=== PATIENT | female | born 1955 | race Caucasian/White ===

== ENCOUNTER 2023-03-09 22:26 | Inpatient (IN) | payer MEDICARE, OTHER, SELFPAY ==
[2023-03-09 22:54] LABS: #Basophils 0.1 thou/uL (0.0-0.2); #Eosinphils 0.2 thou/uL (0.0-0.7); #Lymphocytes 1.2 thou/uL (1.20-3.40); #Monocytes 0.8 thou/uL (0.11-0.59); #Neutrophils 11.2 thou/uL (1.40-6.50); %Basophils 0.4 % (0.0-1.0); %Eosinophils 1.3 % (0.0-10.0); %Monocytes 5.8 % (0.0-10.0); %Neutrophils 83.5 % (42.0-75.0); Hemoglobin 10.1 g/dL (12.0-16.0); Mean Corpuscular HGB CONC 34.1 g/dL (32.0-36.0); Mean Corpuscular Volume 96.8 fl (78.0-98.0); Mean Platelet Volume 8.2 fL (7.4-10.4); Platelet Count 288 10x3/uL (130-400); RBC Distribution Width 11.8 % (11.5-14.5); Red Blood Cell (RBC) Count 3.06 mill/uL (4.20-5.40); White Blood Cell (WBC) Count 13.4 10x3/uL (4.8-10.8)
[2023-03-09 23:24] LABS: ALT (SGPT) 39 U/L (8-55); AST (SGOT) 44 U/L (5-34); Albumin 3.4 g/dL (3.4-4.8); Alkaline Phosphatase 108 U/L (40-110); Anion Gap 15 mmol/L (10-20); BUN (Urea Nitrogen) 18 mg/dL (9.8-20.1); Bilirubin, Total 0.5 mg/dL (0.2-1.2); Calc. Creatinine Clearance 0 mL/min (70-130); Calcium 8.7 mg/dL (7.8-10.44); Carbon Dioxide 20 mmol/L (23-31); Chloride 102 mmol/L (98-107); Estimated GFR 40; Glucose 241 mg/dL (80-115); Potassium 4.3 mmol/L (3.5-5.1); Protein, Total 6.4 g/dL (5.8-8.1); Sodium 133 mmol/L (136-145)
[2023-03-09] MEDS ORDERED: Cefepime 2 GM VIAL ONE (23:36)
[2023-03-09 23:37] LABS: Bacteria/HPF 4+ HPF (None Seen); Bilirubin Negative (Negative); Blood, Urine Negative (Negative); Clarity Clear (Clear); Glucose, Urine (Dipstick) 300 mg/dL (Negative); Ketone, Urine Trace mg/dL (Negative); Leukocyte Negative Leu/uL (Negative); Nitrite Negative (Negative); Protein, Urine (Dipstick) 70 mg/dL (Neg-Trace); RBC/HPF None Seen HPF (0-3); Specific Gravity, Urine 1.011 (1.002-1.036); Urobilinogen Normal mg/dL (Less than 2); WBC/HPF 0-3 HPF (0-3); pH, Urine 5.5 (5.0-9.0)
[2023-03-09 23:51] LABS: Actual Bicarbonate (HCO3a) 19.1 mEq/L (22-28); Analyzer IN Cardio ER; Base Excess (BEa) -6.2 mEq/L (-2.0 to +3.0); CO2 Tension 36.7 mmHg (35.0-45.0); Calcium, Ionized (arterial) 1.14 mmol/L (1.12-1.30); Carboxyhemoglobin (COHb) 0.3 gm% (0.0-3.0); Potassium - ABG Lab 4.47 mmol/L (3.70-5.30); pH, Arterial 7.33 (7.35-7.45)
[2023-03-09 23:57] LABS: ALV-art Gradient 179.425 mmHg (0-20); Puncture Site RRA
[2023-03-10] MEDS ORDERED: Vancomycin 1 GM/200 ML (FROZEN) BAG ONE (00:21)
[2023-03-10] MEDS ORDERED: Lorazepam 1 MG TAB ONE (00:21)
[2023-03-10] MEDS ORDERED: LORazepam 2 MG/ML SYR.(CARPUJECT) ONE (00:22)
[2023-03-10] MEDS ORDERED: Ondansetron ODT 4 MG TAB SL PRN (02:15)
[2023-03-10 02:40] LABS: Actual Bicarbonate (HCO3a) 18.4 mEq/L (22-28); Base Excess (BEa) -7.4 mEq/L (-2.0 to +3.0); CO2 Tension 38.3 mmHg (35.0-45.0); Calcium, Ionized (arterial) 1.13 mmol/L (1.12-1.30); Carboxyhemoglobin (COHb) 0.3 gm% (0.0-3.0); Hemoglobin (Hb) 9.8 g/dL (12.0-16.0); O2 Tension (PaO2), arterial 82.9 mmHg (> 80.0); Potassium - ABG Lab 4.52 mmol/L (3.70-5.30)
[2023-03-10 02:41] LABS: Puncture Site RRA
[2023-03-10 02:42] LABS: ALV-art Gradient 225.725 mmHg (0-20)
[2023-03-10] MEDS ORDERED: Sodium Bicarb 50 MEQ/50 ML VIAL IVP SCH (03:00)
[2023-03-10] MEDS ORDERED: Dextrose 50% Abboject 50 ML SYRINGE SLOW IVP PRN (03:14)
[2023-03-10] MEDS ORDERED: Dextrose 5% in Water 1,000 ML IV PRN (03:14)
[2023-03-10] MEDS ORDERED: Electrolyte Replacement Protocol 1 EACH FS PRN (03:16)
[2023-03-10] MEDS ORDERED: Benzonatate 100 MG CAP PO PRN (03:21)
[2023-03-10] MEDS ORDERED: Guaifenesin DM 100-10/5 ML UDCUP PO PRN (03:21)
[2023-03-10 04:37] LABS: SARS-CoV-2 NAA Rapid Test Not Detected (NotDetected)
[2023-03-10] MEDS: HumaLOG 300 UNITS/3 ML VIAL SC PRN ×2 (06:13→18:38)
[2023-03-10 06:56] LABS: Legionella Urinary Ag Negative (Negative); Strep pneumo Urine Ag NEGATIVE (NEGATIVE)
[2023-03-10 07:43] LABS: #Monocytes 0.7 thou/uL (0.11-0.59); #Neutrophils 9.2 thou/uL (1.40-6.50); %Basophils 0.4 % (0.0-1.0); %Eosinophils 0.1 % (0.0-10.0); %Lymphocytes 8.7 % (21.0-51.0); %Neutrophils 84.8 % (42.0-75.0); Hemoglobin 9.8 g/dL (12.0-16.0); Mean Corpuscular HGB CONC 34.5 g/dL (32.0-36.0); Mean Corpuscular Hemoglobin 33.4 pg (27.0-31.0); Mean Corpuscular Volume 96.8 fl (78.0-98.0); Mean Platelet Volume 8.1 fL (7.4-10.4); Platelet Count 256 10x3/uL (130-400); Red Blood Cell (RBC) Count 2.94 mill/uL (4.20-5.40); White Blood Cell (WBC) Count 10.8 10x3/uL (4.8-10.8)
[2023-03-10 07:59] LABS: Anion Gap 14 mmol/L (10-20); BUN (Urea Nitrogen) 18 mg/dL (9.8-20.1); Calc. Creatinine Clearance 58 mL/min (70-130); Calcium 8.4 mg/dL (7.8-10.44); Carbon Dioxide 19 mmol/L (23-31); Chloride 105 mmol/L (98-107); Estimated GFR 47; Glucose 255 mg/dL (80-115); Potassium 4.5 mmol/L (3.5-5.1); Sodium 133 mmol/L (136-145)
[2023-03-10] MEDS ORDERED: Pantoprazole 40 MG VIAL IVP SCH (09:00)
[2023-03-10] MEDS: Cefepime 2 GM in Sodium Chloride 0.9% 100 ML IVPB SCH ×2 (11:24→21:07)
[2023-03-10] MEDS: Gabapentin 100 MG CAP PO SCH (11:25)
[2023-03-10] MEDS: Ondansetron PF 4 MG/2 ML Vial IVP PRN ×2 (11:27→16:04)
[2023-03-10] MEDS: Acetaminophen 325 MG TAB PO PRN ×2 (11:27→21:07)
[2023-03-10] MEDS ORDERED: Gabapentin 100 MG CAP PO SCH (21:15)
[2023-03-11 03:58] LABS: #Lymphocytes 1.4 thou/uL (1.20-3.40); #Monocytes 0.6 thou/uL (0.11-0.59); #Neutrophils 5.9 thou/uL (1.40-6.50); %Basophils 0.4 % (0.0-1.0); %Eosinophils 0.3 % (0.0-10.0); %Lymphocytes 17.5 % (21.0-51.0); %Monocytes 7.1 % (0.0-10.0); %Neutrophils 74.7 % (42.0-75.0); Mean Corpuscular HGB CONC 34.6 g/dL (32.0-36.0); Mean Corpuscular Hemoglobin 33.8 pg (27.0-31.0); Mean Corpuscular Volume 97.5 fl (78.0-98.0); Platelet Count 236 10x3/uL (130-400); RBC Distribution Width 11.8 % (11.5-14.5); Red Blood Cell (RBC) Count 2.65 mill/uL (4.20-5.40)
[2023-03-11 04:25] LABS: Anion Gap 15 mmol/L (10-20); BUN (Urea Nitrogen) 21 mg/dL (9.8-20.1); Calc. Creatinine Clearance 53 mL/min (70-130); Calcium 8.6 mg/dL (7.8-10.44); Carbon Dioxide 19 mmol/L (23-31); Chloride 104 mmol/L (98-107); Estimated GFR 43; Glucose 284 mg/dL (80-115); Potassium 4.4 mmol/L (3.5-5.1); Sodium 134 mmol/L (136-145)
[2023-03-11] MEDS: Ondansetron PF 4 MG/2 ML Vial IVP PRN ×3 (04:31→21:42)
[2023-03-11] MEDS: HumaLOG 300 UNITS/3 ML VIAL SC PRN ×3 (06:14→18:49)
[2023-03-11] MEDS: Cefepime 2 GM in Sodium Chloride 0.9% 100 ML IVPB SCH (09:03)
[2023-03-11] MEDS: Gabapentin 100 MG CAP PO SCH (09:03)
[2023-03-11] MEDS: Acetaminophen 325 MG TAB PO PRN (18:52)
[2023-03-12] MEDS: Ondansetron PF 4 MG/2 ML Vial IVP PRN (04:00)
[2023-03-12 04:25] LABS: #Lymphocytes 1.1 thou/uL (1.20-3.40); #Monocytes 0.5 thou/uL (0.11-0.59); #Neutrophils 7.1 thou/uL (1.40-6.50); %Basophils 0.2 % (0.0-1.0); %Eosinophils 0.3 % (0.0-10.0); %Lymphocytes 12.3 % (21.0-51.0); %Monocytes 6.2 % (0.0-10.0); %Neutrophils 81.1 % (42.0-75.0); Hemoglobin 9.8 g/dL (12.0-16.0); Mean Corpuscular HGB CONC 34.8 g/dL (32.0-36.0); Mean Corpuscular Hemoglobin 33.9 pg (27.0-31.0); Mean Corpuscular Volume 97.4 fl (78.0-98.0); Mean Platelet Volume 8.3 fL (7.4-10.4); Platelet Count 281 10x3/uL (130-400); RBC Distribution Width 11.8 % (11.5-14.5); Red Blood Cell (RBC) Count 2.87 mill/uL (4.20-5.40); White Blood Cell (WBC) Count 8.8 10x3/uL (4.8-10.8)
[2023-03-12 04:42] LABS: Anion Gap 17 mmol/L (10-20); BUN (Urea Nitrogen) 21 mg/dL (9.8-20.1); Calc. Creatinine Clearance 54 mL/min (70-130); Calcium 9.2 mg/dL (7.8-10.44); Carbon Dioxide 19 mmol/L (23-31); Chloride 105 mmol/L (98-107); Estimated GFR 42; Glucose 236 mg/dL (80-115); Potassium 4.6 mmol/L (3.5-5.1); Sodium 136 mmol/L (136-145)
[2023-03-12] MEDS: HumaLOG 300 UNITS/3 ML VIAL SC PRN ×4 (06:06→20:30)
[2023-03-12] MEDS: Gabapentin 100 MG CAP PO SCH (09:56)
[2023-03-12] MEDS: Promethazine HCl 25 MG in Sodium Chloride 0.9% 50 ML IVPB PRN ×2 (12:34→20:29)
[2023-03-12 15:36] LABS: O2 Tension (PaO2), arterial 59.9 mmHg (> 80.0)
[2023-03-12] MEDS ORDERED: Furosemide 40 MG/4 ML VIAL SLOW IVP SCH (17:00)
[2023-03-13] MEDS: Promethazine HCl 25 MG in Sodium Chloride 0.9% 50 ML IVPB PRN (03:23)
[2023-03-13 04:36] LABS: #Eosinphils 0.1 thou/uL (0.0-0.7); #Lymphocytes 1.3 thou/uL (1.20-3.40); #Monocytes 0.5 thou/uL (0.11-0.59); #Neutrophils 4.6 thou/uL (1.40-6.50); %Basophils 0.3 % (0.0-1.0); %Eosinophils 1.6 % (0.0-10.0); %Lymphocytes 19.7 % (21.0-51.0); %Neutrophils 70.4 % (42.0-75.0); Hemoglobin 9.2 g/dL (12.0-16.0); Mean Corpuscular HGB CONC 33.8 g/dL (32.0-36.0); Mean Corpuscular Hemoglobin 32.9 pg (27.0-31.0); Mean Corpuscular Volume 97.3 fl (78.0-98.0); Mean Platelet Volume 8.1 fL (7.4-10.4); Platelet Count 288 10x3/uL (130-400); Red Blood Cell (RBC) Count 2.78 mill/uL (4.20-5.40); White Blood Cell (WBC) Count 6.6 10x3/uL (4.8-10.8)
[2023-03-13 04:53] LABS: Anion Gap 13 mmol/L (10-20); BUN (Urea Nitrogen) 23 mg/dL (9.8-20.1); Calc. Creatinine Clearance 57 mL/min (70-130); Carbon Dioxide 24 mmol/L (23-31); Chloride 102 mmol/L (98-107); Estimated GFR 45; Glucose 285 mg/dL (80-115); Potassium 4.4 mmol/L (3.5-5.1); Sodium 135 mmol/L (136-145)
[2023-03-13] MEDS: HumaLOG 300 UNITS/3 ML VIAL SC PRN ×3 (06:32→21:29)
[2023-03-13] MEDS: Gabapentin 100 MG CAP PO SCH (10:10)
[2023-03-13] MEDS ORDERED: Furosemide 40 MG/4 ML VIAL SLOW IVP SCH (18:15)
[2023-03-13 22:37] LABS: Mycoplasma pneumoniae IgG AB 305 U/mL (0-99); Mycoplasma pneumoniae IgM AB Less than 770 U/mL (0-769)
[2023-03-14 04:02] LABS: #Eosinphils 0.1 thou/uL (0.0-0.7); #Lymphocytes 1.6 thou/uL (1.20-3.40); #Monocytes 0.5 thou/uL (0.11-0.59); #Neutrophils 3.4 thou/uL (1.40-6.50); %Basophils 0.5 % (0.0-1.0); %Eosinophils 2.3 % (0.0-10.0); %Lymphocytes 27.4 % (21.0-51.0); %Monocytes 9.1 % (0.0-10.0); %Neutrophils 60.8 % (42.0-75.0); Hemoglobin 10.1 g/dL (12.0-16.0); Mean Corpuscular HGB CONC 33.7 g/dL (32.0-36.0); Mean Corpuscular Hemoglobin 32.4 pg (27.0-31.0); Mean Corpuscular Volume 96.4 fl (78.0-98.0); Mean Platelet Volume 7.7 fL (7.4-10.4); Platelet Count 287 10x3/uL (130-400); RBC Distribution Width 11.9 % (11.5-14.5); Red Blood Cell (RBC) Count 3.12 mill/uL (4.20-5.40); White Blood Cell (WBC) Count 5.7 10x3/uL (4.8-10.8)
[2023-03-14 04:42] LABS: Anion Gap 15 mmol/L (10-20); BUN (Urea Nitrogen) 22 mg/dL (9.8-20.1); Calc. Creatinine Clearance 58 mL/min (70-130); Carbon Dioxide 27 mmol/L (23-31); Chloride 97 mmol/L (98-107); Estimated GFR 47; Glucose 270 mg/dL (80-115); Potassium 3.8 mmol/L (3.5-5.1); Sodium 135 mmol/L (136-145)
[2023-03-14] MEDS: HumaLOG 300 UNITS/3 ML VIAL SC PRN ×4 (05:37→23:51)
[2023-03-14] MEDS: Gabapentin 100 MG CAP PO SCH (09:06)
[2023-03-14] MEDS: Ondansetron PF 4 MG/2 ML Vial IVP PRN (09:11)
[2023-03-15 04:01] LABS: #Eosinphils 0.2 thou/uL (0.0-0.7); #Lymphocytes 1.5 thou/uL (1.20-3.40); #Monocytes 0.6 thou/uL (0.11-0.59); #Neutrophils 4.2 thou/uL (1.40-6.50); %Basophils 0.4 % (0.0-1.0); %Eosinophils 3.4 % (0.0-10.0); %Monocytes 9.5 % (0.0-10.0); %Neutrophils 63.7 % (42.0-75.0); Hemoglobin 9.4 g/dL (12.0-16.0); Mean Corpuscular HGB CONC 33.1 g/dL (32.0-36.0); Mean Corpuscular Hemoglobin 31.8 pg (27.0-31.0); Mean Corpuscular Volume 96.2 fl (78.0-98.0); Mean Platelet Volume 7.7 fL (7.4-10.4); Platelet Count 295 10x3/uL (130-400); RBC Distribution Width 11.8 % (11.5-14.5); Red Blood Cell (RBC) Count 2.94 mill/uL (4.20-5.40); White Blood Cell (WBC) Count 6.6 10x3/uL (4.8-10.8)
[2023-03-15 04:21] LABS: Anion Gap 13 mmol/L (10-20); BUN (Urea Nitrogen) 19 mg/dL (9.8-20.1); Calc. Creatinine Clearance 60 mL/min (70-130); Calcium 8.8 mg/dL (7.8-10.44); Carbon Dioxide 27 mmol/L (23-31); Chloride 98 mmol/L (98-107); Estimated GFR 49; Glucose 243 mg/dL (80-115); Potassium 3.6 mmol/L (3.5-5.1); Sodium 134 mmol/L (136-145)
[2023-03-15] MEDS: Gabapentin 100 MG CAP PO SCH (08:58)
[2023-03-15] MEDS: HumaLOG 300 UNITS/3 ML VIAL SC PRN ×2 (11:37→16:47)
[2023-03-15] MEDS ORDERED: hydrALAZINE 25 MG TAB PO SCH (12:15)
[2023-03-15] MEDS: hydrALAZINE 25 MG TAB PO SCH ×2 (14:36→23:16)
[2023-03-15] MEDS: Ondansetron PF 4 MG/2 ML Vial IVP PRN (14:36)
[2023-03-15] MEDS: cloNIDine 0.3 MG TAB PO SCH ×2 (15:15→23:17)
[2023-03-15] MEDS: Amlodipine 5 MG TAB PO SCH (23:16)
[2023-03-15] MEDS: Cilostazol 100 MG TAB PO SCH (23:16)
[2023-03-15] MEDS: Insulin Glargine 30 UNITS/0.3 ML VIAL SC SCH (23:35)
[2023-03-16 08:32] LABS: #Eosinphils 0.2 thou/uL (0.0-0.7); #Lymphocytes 1.4 thou/uL (1.20-3.40); #Monocytes 0.5 thou/uL (0.11-0.59); #Neutrophils 3.5 thou/uL (1.40-6.50); %Basophils 0.5 % (0.0-1.0); %Lymphocytes 24.4 % (21.0-51.0); %Monocytes 9.4 % (0.0-10.0); %Neutrophils 61.7 % (42.0-75.0); Mean Corpuscular HGB CONC 32.7 g/dL (32.0-36.0); Mean Corpuscular Volume 94.8 fl (78.0-98.0); Mean Platelet Volume 7.6 fL (7.4-10.4); Platelet Count 317 10x3/uL (130-400); Red Blood Cell (RBC) Count 3.21 mill/uL (4.20-5.40); White Blood Cell (WBC) Count 5.6 10x3/uL (4.8-10.8)
[2023-03-16 08:47] LABS: Anion Gap 13 mmol/L (10-20); BUN (Urea Nitrogen) 19 mg/dL (9.8-20.1); Calc. Creatinine Clearance 61 mL/min (70-130); Calcium 9.1 mg/dL (7.8-10.44); Carbon Dioxide 28 mmol/L (23-31); Chloride 98 mmol/L (98-107); Estimated GFR 51; Glucose 285 mg/dL (80-115); Potassium 3.9 mmol/L (3.5-5.1); Sodium 135 mmol/L (136-145)
[2023-03-16] MEDS: Amlodipine 5 MG TAB PO SCH ×2 (09:58→21:29)
[2023-03-16] MEDS: Cilostazol 100 MG TAB PO SCH ×2 (09:58→21:32)
[2023-03-16] MEDS: Cyanocobalamin (Vitamin B-12) 1,000 MCG TAB PO SCH (09:58)
[2023-03-16] MEDS: Gabapentin 100 MG CAP PO SCH (09:59)
[2023-03-16] MEDS: cloNIDine 0.3 MG TAB PO SCH ×3 (09:59→21:30)
[2023-03-16] MEDS: hydrALAZINE 25 MG TAB PO SCH ×3 (09:59→21:30)
[2023-03-16] MEDS: Insulin Glargine 30 UNITS/0.3 ML VIAL SC SCH ×2 (10:00→21:31)
[2023-03-16] MEDS: HumaLOG 300 UNITS/3 ML VIAL SC PRN ×2 (18:04→21:31)
[2023-03-17] MEDS ORDERED: Cepastat Lozenges 1 LOZ PO PRN (04:05)
[2023-03-17] MEDS ORDERED: Phenol 118 ML BOT PO PRN (04:32)
[2023-03-17] MEDS: HumaLOG 300 UNITS/3 ML VIAL SC PRN (05:31)
[2023-03-17 06:50] LABS: #Eosinphils 0.1 thou/uL (0.0-0.7); #Lymphocytes 1.5 thou/uL (1.20-3.40); #Monocytes 0.3 thou/uL (0.11-0.59); #Neutrophils 3.4 thou/uL (1.40-6.50); %Basophils 0.3 % (0.0-1.0); %Eosinophils 2.2 % (0.0-10.0); %Lymphocytes 27.3 % (21.0-51.0); %Monocytes 6.1 % (0.0-10.0); %Neutrophils 64.1 % (42.0-75.0); Hemoglobin 9.3 g/dL (12.0-16.0); Mean Corpuscular HGB CONC 33.3 g/dL (32.0-36.0); Mean Corpuscular Hemoglobin 31.4 pg (27.0-31.0); Mean Corpuscular Volume 94.4 fl (78.0-98.0); Mean Platelet Volume 7.5 fL (7.4-10.4); Platelet Count 320 10x3/uL (130-400); RBC Distribution Width 11.8 % (11.5-14.5); Red Blood Cell (RBC) Count 2.96 mill/uL (4.20-5.40); White Blood Cell (WBC) Count 5.3 10x3/uL (4.8-10.8)
[2023-03-17 07:11] LABS: Anion Gap 13 mmol/L (10-20); BUN (Urea Nitrogen) 23 mg/dL (9.8-20.1); Calc. Creatinine Clearance 46 mL/min (70-130); Carbon Dioxide 27 mmol/L (23-31); Chloride 97 mmol/L (98-107); Estimated GFR 37; Glucose 231 mg/dL (80-115); Potassium 3.6 mmol/L (3.5-5.1); Sodium 133 mmol/L (136-145)
[2023-03-17] MEDS: cloNIDine 0.3 MG TAB PO SCH ×3 (09:02→20:30)
[2023-03-17] MEDS: Cilostazol 100 MG TAB PO SCH ×2 (09:02→20:26)
[2023-03-17] MEDS: Amlodipine 5 MG TAB PO SCH ×2 (09:03→20:30)
[2023-03-17] MEDS: Cyanocobalamin (Vitamin B-12) 1,000 MCG TAB PO SCH (09:03)
[2023-03-17] MEDS: hydrALAZINE 25 MG TAB PO SCH ×3 (09:03→20:31)
[2023-03-17] MEDS: Gabapentin 100 MG CAP PO SCH (09:03)
[2023-03-17] MEDS: Insulin Glargine 30 UNITS/0.3 ML VIAL SC SCH ×2 (09:04→20:31)
[2023-03-18 07:25] LABS: #Eosinphils 0.1 thou/uL (0.0-0.7); #Lymphocytes 1.6 thou/uL (1.20-3.40); #Monocytes 0.5 thou/uL (0.11-0.59); #Neutrophils 2.8 thou/uL (1.40-6.50); %Basophils 0.3 % (0.0-1.0); %Eosinophils 1.9 % (0.0-10.0); %Lymphocytes 31.9 % (21.0-51.0); %Monocytes 9.6 % (0.0-10.0); %Neutrophils 56.3 % (42.0-75.0); Mean Corpuscular HGB CONC 33.6 g/dL (32.0-36.0); Mean Corpuscular Hemoglobin 31.8 pg (27.0-31.0); Mean Corpuscular Volume 94.7 fl (78.0-98.0); Mean Platelet Volume 7.2 fL (7.4-10.4); Platelet Count 318 10x3/uL (130-400); Red Blood Cell (RBC) Count 3.16 mill/uL (4.20-5.40)
[2023-03-18 07:43] LABS: Anion Gap 15 mmol/L (10-20); BUN (Urea Nitrogen) 19 mg/dL (9.8-20.1); Calc. Creatinine Clearance 52 mL/min (70-130); Carbon Dioxide 23 mmol/L (23-31); Chloride 101 mmol/L (98-107); Estimated GFR 43; Glucose 146 mg/dL (80-115); Potassium 4.2 mmol/L (3.5-5.1); Sodium 135 mmol/L (136-145)
[2023-03-18] MEDS: Cyanocobalamin (Vitamin B-12) 1,000 MCG TAB PO SCH (08:30)
[2023-03-18] MEDS: Amlodipine 5 MG TAB PO SCH ×2 (08:30→21:13)
[2023-03-18] MEDS: cloNIDine 0.3 MG TAB PO SCH ×3 (08:31→21:13)
[2023-03-18] MEDS: Insulin Glargine 30 UNITS/0.3 ML VIAL SC SCH ×2 (08:31→21:14)
[2023-03-18] MEDS: Gabapentin 100 MG CAP PO SCH (08:31)
[2023-03-18] MEDS: Cilostazol 100 MG TAB PO SCH ×2 (08:31→21:12)
[2023-03-18] MEDS: hydrALAZINE 25 MG TAB PO SCH ×3 (08:31→21:12)
[2023-03-19 07:28] LABS: #Eosinphils 0.1 thou/uL (0.0-0.7); #Lymphocytes 1.7 thou/uL (1.20-3.40); #Monocytes 0.5 thou/uL (0.11-0.59); #Neutrophils 2.9 thou/uL (1.40-6.50); %Basophils 0.7 % (0.0-1.0); %Eosinophils 1.7 % (0.0-10.0); %Lymphocytes 32.5 % (21.0-51.0); %Monocytes 9.8 % (0.0-10.0); %Neutrophils 55.3 % (42.0-75.0); Hemoglobin 10.3 g/dL (12.0-16.0); Mean Corpuscular HGB CONC 31.8 g/dL (32.0-36.0); Mean Corpuscular Hemoglobin 30.1 pg (27.0-31.0); Mean Corpuscular Volume 94.6 fl (78.0-98.0); Mean Platelet Volume 7.4 fL (7.4-10.4); Platelet Count 339 10x3/uL (130-400); Red Blood Cell (RBC) Count 3.42 mill/uL (4.20-5.40); White Blood Cell (WBC) Count 5.2 10x3/uL (4.8-10.8)
[2023-03-19 07:47] LABS: Anion Gap 14 mmol/L (10-20); BUN (Urea Nitrogen) 20 mg/dL (9.8-20.1); Calc. Creatinine Clearance 47 mL/min (70-130); Calcium 9.3 mg/dL (7.8-10.44); Carbon Dioxide 25 mmol/L (23-31); Chloride 100 mmol/L (98-107); Estimated GFR 38; Glucose 157 mg/dL (80-115); Potassium 4.2 mmol/L (3.5-5.1); Sodium 135 mmol/L (136-145)
[2023-03-19] MEDS: Cyanocobalamin (Vitamin B-12) 1,000 MCG TAB PO SCH (09:11)
[2023-03-19] MEDS: cloNIDine 0.3 MG TAB PO SCH ×2 (09:11→15:05)
[2023-03-19] MEDS: Cilostazol 100 MG TAB PO SCH (09:13)
[2023-03-19] MEDS: hydrALAZINE 25 MG TAB PO SCH ×2 (09:13→15:06)
[2023-03-19] MEDS: Amlodipine 5 MG TAB PO SCH (09:13)
[2023-03-19] MEDS: Insulin Glargine 30 UNITS/0.3 ML VIAL SC SCH (09:13)
[2023-03-19] MEDS: Gabapentin 100 MG CAP PO SCH (09:13)
[2023-03-19] MEDS: HumaLOG 300 UNITS/3 ML VIAL SC PRN (12:16)
[2023-03-19 15:20] VITALS: BP 148/71; TEMP 98.2
== END 2023-03-19 16:21 | DRG 871 ==
LOC: ERS 22:26 → IMCU/EMU 03-10 00:34 → T4-B 03-15 11:56
PROVIDERS: ADMIT Hospitalist; ATTEND Hospitalist
PROC: 3E03329 Introduction of Other Anti-infective into Peripheral Vein, Percutaneous Approach (ICD-10-PCS; principal; 2023-03-10)
PROC: 5A09357 Assistance with Respiratory Ventilation, Less than 24 Consecutive Hours, Continuous Positive Airway Pressure (ICD-10-PCS; 2023-03-10)
DX: A41.9 Sepsis, unspecified organism (principal); G93.41 Metabolic encephalopathy; J96.01 Acute respiratory failure with hypoxia; J18.9 Pneumonia, unspecified organism; N17.9 Acute kidney failure, unspecified; E87.1 Hypo-osmolality and hyponatremia; E87.20 Acidosis, unspecified; N39.0 Urinary tract infection, site not specified; R65.20 Severe sepsis without septic shock; Z20.822 Contact with and (suspected) exposure to COVID-19; N18.9 Chronic kidney disease, unspecified; E11.22 Type 2 diabetes mellitus with diabetic chronic kidney disease; I12.9 Hypertensive chronic kidney disease with stage 1 through stage 4 chronic kidney disease, or unspecified chronic kidney disease; E11.42 Type 2 diabetes mellitus with diabetic polyneuropathy; Z88.8 Allergy status to other drugs, medicaments and biological substances; Z79.899 Other long term (current) drug therapy; Z79.82 Long term (current) use of aspirin; Z79.4 Long term (current) use of insulin; Z90.710 Acquired absence of both cervix and uterus; Z95.5 Presence of coronary angioplasty implant and graft; Z98.890 Other specified postprocedural states
CPT/HCPCS: 36415; 36416; 36600; 51701; 71045; 80048; 81015; 82805; 83605; 83880; 84145; 85025; 87040; 87070; 87077; 87086; 87186; 87205; 87449; 87899; 93005; 93306; 94660; 96365; 96367; 96375; C9113; J0692; J1650; J1815; J1940; J1956; J2060; J2405; J2550; J3370-JW; J3490